=== PATIENT | female | born 2000 | race Two or more races ===

== ENCOUNTER 2022-09-18 10:40 | Emergency (ER) | payer OTHER ==
[~2022-09-18] VITALS: Ht 167.6 cm; Wt 63.5 kg
== END 2022-09-18 14:34 | disposition home or self-care (01) ==
LOC: ER 10:40
DX: O99.613 Diseases of the digestive system complicating pregnancy, third trimester (principal); Z3A.30 30 weeks gestation of pregnancy; K52.9 Noninfective gastroenteritis and colitis, unspecified

== ENCOUNTER 2022-11-01 17:29 | Inpatient (IN) | payer OTHER ==
[~2022-11-01] VITALS: Ht 167.6 cm; Wt 77.1 kg
[2022-11-01] MEDS ORDERED: PRENATAL VITAM1 EAC4 PO (18:17)
== END 2022-11-04 13:18 | disposition home or self-care (01) | DRG 807 ==
LOC: OB/GYN 17:29 → LDR 17:29 → OB/GYN 11-02 05:25
PROVIDERS: ADMIT Specialist; ATTEND Specialist
PROC: 4A1HXCZ Monitoring of Products of Conception, Cardiac Rate, External Approach (ICD-10-PCS; 2022-11-01)
PROC: 10E0XZZ Delivery of Products of Conception, External Approach (ICD-10-PCS; principal; 2022-11-02)
PROC: 0W8NXZZ Division of Female Perineum, External Approach (ICD-10-PCS; 2022-11-02)
PROC: 0HQ9XZZ Repair Perineum Skin, External Approach (ICD-10-PCS; 2022-11-02)
DX: O70.1 Second degree perineal laceration during delivery (principal); Z37.0 Single live birth; Z3A.38 38 weeks gestation of pregnancy; Z20.822 Contact with and (suspected) exposure to COVID-19

== ENCOUNTER → 2025-02-10 | Emergency (ER) | payer OTHER ==
[~2025-02-10] VITALS: Ht 167.6 cm; Wt 61.7 kg
[~2025-02-10] MED LIST: PRENATAL VITAM1 EAC4 PO; ZITHROMAX200 MG PO
[2025-02-10 15:45] LABS: BASO % 0.4 % (0.1-1.2); EOS # 0.04 (0.04-0.54); EOS % 0.4 % (0.7-7.0); LYMPH # 1.43 (1.18-3.74); LYMPH % 13.1 % (19.3-53.1); MEAN PLATELET VOLUME 12.40 fl (9.4-12.4); MONO # 0.46 (0.24-0.82); MONO % 4.2 % (4.7-12.5); NEUT # 8.90 (1.56-6.13); NEUT % 81.5 % (34.0-71.1); RED CELL DISTRIBUTION WIDTH 12.4 % (11.6-14.4)
[2025-02-10 16:15] LABS: COVID-19 AG NEGATIVE (NEGATIVE)
[2025-02-10 16:18] LABS: ALT/SGPT 24.0 U/L (12-78); AST/SGOT 18.0 U/L (15-37); BILIRUBIN TOTAL 0.45 mg/dL (0.3-1.2); BUN CREA RATIO 21.0 (7.0-25.0); CREATININE SERUM 0.48 mg/dL (0.55-1.02); GFR 156.33; GLOBULINA 3.6 G/DL (2.4-3.5); GLUCOSE FASTING 80.0 mg/dL (65-100); OSMOLALITY SERUM 272.0 MOSM/KG (275-295)
[2025-02-10 16:36] LABS: ERYTHROCYTE SEDIMENTATION RATE 10 mm/hr (0-20)
== END | disposition home or self-care (01) ==
LOC: ER 11:48
PROVIDERS: Physician Assistant Medical
DX: J04.0 Acute laryngitis (principal); J02.8 Acute pharyngitis due to other specified organisms; Z20.822 Contact with and (suspected) exposure to COVID-19